=== PATIENT | female | born 1980 | race Caucasian/White ===

== ENCOUNTER 2021-08-12 17:52 | Emergency (ER) | payer OTHER ==
[~2021-08-12 17:52] MED LIST: FELDENE10 MG PO; LODINE CAP 300300 MG PO; MACROBID 100 M100 MG PO; PYRIDIUM200 MG PO; ZOFRAN4 MG PO
== END 2021-08-12 20:00 | disposition left against medical advice (07) ==
LOC: ER1 17:52
DX: Z53.21 Procedure and treatment not carried out due to patient leaving prior to being seen by health care provider (principal)